=== PATIENT | male | born 1970 | race Caucasian/White ===

== ENCOUNTER 2017-12-11 05:04 | Inpatient (IN) | payer MEDICAID ==
[~2017-12-11] VITALS: Ht 167.6 cm; Wt 68.5 kg
[2017-12-11 05:58] LABS: BASOPHILS % (AUTO) 0.7 % (0.0-2.0); EOSINOPHILS % (AUTO) 1.9 % (1.0-6.0); HEMATOCRIT 44.6 % (41-53); HEMOGLOBIN 15.3 g/dL (13.5-17.5); LYMPHOCYTES # (AUTO) 2.1 K/uL (1.0-4.8); LYMPHOCYTES % (AUTO) 26.2 % (22.0-44.0); MEAN CORPUSCULAR HEMOGLOBIN 32.1 pg (26.0-34.0); MEAN CORPUSCULAR HGB CONC 34.3 G/dL (31.0-37.0); MEAN CORPUSCULAR VOLUME 94 fL (80-100); MONOCYTES # (AUTO) 0.7 K/uL (0.1-1.0); MONOCYTES % (AUTO) 8.2 % (2.0-9.0); PLATELET COUNT (AUTO) 214 K/uL (150-450); RED BLOOD CELL COUNT(AUTO) 4.76 MIL/uL (4.50-5.90); RED CELL DISTRIBUTION WIDTH 13.9 % (11.5-14.5)
[2017-12-11 06:06] LABS: ANION GAP 7 mmol/L (8-16); CALCIUM, TOTAL 8.9 mg/dL (8.8-10.5); CARBON DIOXIDE 32 mmol/L (22-29); CHLORIDE 105 mmol/L (98-107); CREATININE 0.84 mg/dL (0.60-1.30); GLOMERULAR FILTR. RATE CALC > 60 mL/min (>60); GLUCOSE,RANDOM 76 mg/dL (70-110); POTASSIUM 3.6 mmol/L (3.5-5.1); SODIUM SERUM 144 mmol/L (136-145); UREA NITROGEN, BLOOD 16 mg/dL (7-18)
[2017-12-11 06:12] LABS: ALANINE AMINOTRANSFERASE 86 U/L (12-78); ALBUMIN 3.8 g/dL (3.4-5.0); ALKALINE PHOSPHATASE 102 U/L (46-116); ASPARTATE AMINOTRANSFERASE 43 U/L (15-37); BILIRUBIN,TOTAL 0.2 mg/dL (0.1-1.0); TOTAL PROTEIN, SERUM 7.3 g/dL (6.4-8.2)
[2017-12-11] MEDS ORDERED: LORazepam 2 MG TABLET PO PRN (08:00)
[2017-12-11] MEDS ORDERED: HALOPERIDOL 5 MG TABLET PO PRN (08:00)
[2017-12-11] MEDS ORDERED: ZOLPIDEM TARTRATE 10 MG TABLET PO PRN (08:00)
[2017-12-11 13:59] VITALS: BP 105/81
[2017-12-11] MEDS ORDERED: INFLUENZA VIRUS VACCINE QVS 2017-18 (3YR+)/PF 60 MCG/0.5 ML SYRINGE IM ONE (14:00)
[2017-12-11 16:14] VITALS: BP 112/69
[2017-12-12 08:17] VITALS: BP 117/67
[2017-12-12] MEDS ORDERED: MAGNESIUM HYDROXIDE SUSPENSION 30 ML UDCUP PO PRN (08:30)
[2017-12-12] MEDS ORDERED: CloNIDine HCL 0.1 MG TABLET PO PRN (08:30)
[2017-12-12] MEDS ORDERED: ONDANSETRON HCL 4 MG TABLET PO PRN (08:30)
[2017-12-12] MEDS ORDERED: MAG HYDROX/AL HYDROX/SIMETH ES 30 ML SUSPENSION UDCUP PO PRN (08:30)
[2017-12-12] MEDS ORDERED: LOPERAMIDE HCL 2 MG CAPSULE PO PRN (08:30)
[2017-12-12] MEDS ORDERED: IBUPROFEN 600 MG TABLET PO PRN (08:30)
[2017-12-12] MEDS ORDERED: ALBUTEROL SULFATE HFA 90 MCG/PUFF 8 GM INHALER IH PRN (08:30)
[2017-12-12] MEDS ORDERED: BENZOCAINE/MENTHOL LOZENGE [8 LOZENGES/PACKET] MM PRN (08:30)
[2017-12-12] MEDS ORDERED: PETROLATUM,WHITE 71 GM JELLY TP PRN (08:30)
[2017-12-12] MEDS ORDERED: BACITRACIN 28.4 GM OINTMENT TP PRN (08:30)
[2017-12-12] MEDS ORDERED: ACETAMINOPHEN 325 MG TABLET PO PRN (08:30)
[2017-12-12] MEDS: NICOTINE 14 MG/24 HOUR PATCH TD SCH (09:41)
[2017-12-12] MEDS: QUEtiapine FUMARATE 100 MG TABLET PO SCH ×2 (09:41→17:31)
[2017-12-13] MEDS: NICOTINE 14 MG/24 HOUR PATCH TD SCH (09:01)
[2017-12-13] MEDS: QUEtiapine FUMARATE 100 MG TABLET PO SCH ×2 (09:01→17:53)
[2017-12-13 18:14] VITALS: BP 120/70
[2017-12-14] MEDS: QUEtiapine FUMARATE 100 MG TABLET PO SCH ×2 (08:09→16:53)
[2017-12-14] MEDS: NICOTINE 14 MG/24 HOUR PATCH TD SCH (08:13)
[2017-12-14 11:26] VITALS: BP 110/74
[2017-12-15 08:24] VITALS: BP 123/92
[2017-12-15] MEDS: QUEtiapine FUMARATE 100 MG TABLET PO SCH (08:51)
[2017-12-15] MEDS: NICOTINE 14 MG/24 HOUR PATCH TD SCH (08:54)
[2017-12-15] MEDS ORDERED: QUEtiapine FUMARATE 100 MG TABLET PO ONE (14:15)
[2017-12-15] MEDS ORDERED: QUET300T2 PO (14:25)
[2017-12-15] MEDS: QUEtiapine FUMARATE 300 MG TABLET PO SCH (17:24)
[2017-12-15 17:59] VITALS: BP 124/86
[2017-12-16] MEDS: NICOTINE 14 MG/24 HOUR PATCH TD SCH (09:00)
[2017-12-16] MEDS: QUEtiapine FUMARATE 300 MG TABLET PO SCH (09:30)
== END 2017-12-16 10:35 | disposition home or self-care (01) | DRG 751 ==
LOC: EMS 05:05 → AHU 10:42 → 3EC 14:58 → 3EI 12-15 22:30
PROVIDERS: ADMIT Psychiatry & Neurology Psychiatry; ATTEND Psychiatry & Neurology Psychiatry
DX: F29 Unspecified psychosis not due to a substance or known physiological condition (principal); F22 Delusional disorders; F15.10 Other stimulant abuse, uncomplicated; F41.9 Anxiety disorder, unspecified; G47.00 Insomnia, unspecified; F19.20 Other psychoactive substance dependence, uncomplicated; F17.200 Nicotine dependence, unspecified, uncomplicated; F12.90 Cannabis use, unspecified, uncomplicated; Z59.0 Homelessness; Z91.5 Personal history of self-harm
CPT/HCPCS: 99285; G0480

== ENCOUNTER 2017-12-26 13:25 | Inpatient (IN) | payer MEDICAID ==
[~2017-12-26] VITALS: Ht 167.6 cm; Wt 69.9 kg
[~2017-12-26 13:25] MED LIST: QUET300T2 PO
[2017-12-26 13:43] LABS: BASOPHILS % (AUTO) 0.8 % (0.0-2.0); EOSINOPHILS % (AUTO) 0.9 % (1.0-6.0); HEMOGLOBIN 16.7 g/dL (13.5-17.5); LYMPHOCYTES # (AUTO) 4.8 K/uL (1.0-4.8); LYMPHOCYTES % (AUTO) 41.8 % (22.0-44.0); MEAN CORPUSCULAR HEMOGLOBIN 31.7 pg (26.0-34.0); MEAN CORPUSCULAR HGB CONC 34.1 G/dL (31.0-37.0); MEAN CORPUSCULAR VOLUME 93 fL (80-100); MONOCYTES # (AUTO) 1.1 K/uL (0.1-1.0); MONOCYTES % (AUTO) 10.1 % (2.0-9.0); NEUTROPHILS # (AUTO) 5.3 K/uL (1.8-7.7); NEUTROPHILS % (AUTO) 46.4 % (40.0-70.0); PLATELET COUNT (AUTO) 316 K/uL (150-450); RED BLOOD CELL COUNT(AUTO) 5.26 MIL/uL (4.50-5.90); RED CELL DISTRIBUTION WIDTH 13.5 % (11.5-14.5)
[2017-12-26 14:11] LABS: ANION GAP 11 mmol/L (8-16); CALCIUM, TOTAL 9.1 mg/dL (8.8-10.5); CARBON DIOXIDE 27 mmol/L (22-29); CHLORIDE 102 mmol/L (98-107); CREATININE 0.89 mg/dL (0.60-1.30); GLOMERULAR FILTR. RATE CALC > 60 mL/min (>60); GLUCOSE,RANDOM 116 mg/dL (70-110); POTASSIUM 3.6 mmol/L (3.5-5.1); SODIUM SERUM 140 mmol/L (136-145); UREA NITROGEN, BLOOD 12 mg/dL (7-18)
[2017-12-26 14:15] LABS: ALANINE AMINOTRANSFERASE 115 U/L (12-78); ALBUMIN 4.2 g/dL (3.4-5.0); ALKALINE PHOSPHATASE 78 U/L (46-116); ASPARTATE AMINOTRANSFERASE 108 U/L (15-37); BILIRUBIN,TOTAL 0.8 mg/dL (0.1-1.0); TOTAL PROTEIN, SERUM 8.1 g/dL (6.4-8.2)
[2017-12-26 15:56] LABS: AMPHET/METH SCREEN,URINE POSITIVE (NEGATIVE); BARBITURATE SCREEN, URINE NEGATIVE (NEGATIVE); BENZODIAZEPINES SCREEN,URINE NEGATIVE (NEGATIVE); CANNABINOID SCREEN,URINE POSITIVE (NEGATIVE); COCAINE SCREEN,URINE NEGATIVE (NEGATIVE); METHADONE SCREEN, URINE NEGATIVE (NEGATIVE); OPIATE SCREEN,URINE NEGATIVE (NEGATIVE)
[2017-12-26 16:02] LABS: PHENCYCLIDINE SCREEN,URINE NEGATIVE (NEGATIVE)
[2017-12-26] MEDS ORDERED: QUEtiapine FUMARATE 100 MG TABLET PO ONE (16:45)
[2017-12-26] MEDS ORDERED: LORazepam 2 MG TABLET PO PRN (17:30)
[2017-12-26] MEDS ORDERED: HALOPERIDOL 5 MG TABLET PO PRN (17:30)
[2017-12-26] MEDS ORDERED: ZOLPIDEM TARTRATE 10 MG TABLET PO PRN (17:30)
[2017-12-26 18:01] LABS: APPEARANCE,URINE CLEAR (CLEAR); GLUCOSE, URINE (UA) NEGATIVE (NEGATIVE); KETONES,URINE NEGATIVE (NEGATIVE); LEUKOCYTE ESTERASE ,URINE NEGATIVE (NEGATIVE); NITRATE,URINE NEGATIVE (NEGATIVE); OCCULT BLOOD,URINE NEGATIVE (NEGATIVE); PROTEIN,URINE TRACE (NEGATIVE)
[2017-12-26 18:06] LABS: BILIRUBIN,URINE PRELIM. POSITIVE (NEGATIVE)
[2017-12-26] MEDS ORDERED: BACITRACIN 28.4 GM OINTMENT TP PRN (19:15)
[2017-12-26] MEDS ORDERED: ONDANSETRON HCL 4 MG TABLET PO PRN (19:15)
[2017-12-26] MEDS ORDERED: LOPERAMIDE HCL 2 MG CAPSULE PO PRN (19:15)
[2017-12-26] MEDS ORDERED: MAGNESIUM HYDROXIDE SUSPENSION 30 ML UDCUP PO PRN (19:15)
[2017-12-26] MEDS ORDERED: ACETAMINOPHEN 325 MG TABLET PO PRN (19:15)
[2017-12-26] MEDS ORDERED: PETROLATUM,WHITE 71 GM JELLY TP PRN (19:15)
[2017-12-26] MEDS ORDERED: ALBUTEROL SULFATE HFA 90 MCG/PUFF 8 GM INHALER IH PRN (19:15)
[2017-12-26] MEDS ORDERED: CloNIDine HCL 0.1 MG TABLET PO PRN (19:15)
[2017-12-26] MEDS ORDERED: IBUPROFEN 600 MG TABLET PO PRN (19:15)
[2017-12-26] MEDS ORDERED: MAG HYDROX/AL HYDROX/SIMETH ES 30 ML SUSPENSION UDCUP PO PRN (19:15)
[2017-12-26] MEDS ORDERED: BENZOCAINE/MENTHOL LOZENGE [8 LOZENGES/PACKET] MM PRN (19:30)
[2017-12-26 20:12] VITALS: BP 119/76
[2017-12-27 06:34] LABS: HEMOGLOBIN A1C 5.8 % (4.5-6.2)
[2017-12-27 06:49] LABS: CHOL/HDL RATIO 1.8 (4.2-7.3); THYROID STIMULATING HORMONE 2.98 uIU/mL (0.36-3.74)
[2017-12-27 09:27] VITALS: BP 118/67
[2017-12-27] MEDS: QUEtiapine FUMARATE 300 MG TABLET PO SCH ×2 (10:01→17:37)
[2017-12-27 21:36] VITALS: BP 120/74
[2017-12-28 06:50] LABS: ANION GAP 7 mmol/L (8-16); CALCIUM, TOTAL 9.1 mg/dL (8.8-10.5); CARBON DIOXIDE 30 mmol/L (22-29); CHLORIDE 104 mmol/L (98-107); CREATININE 0.67 mg/dL (0.60-1.30); GLOMERULAR FILTR. RATE CALC > 60 mL/min (>60); GLUCOSE,RANDOM 88 mg/dL (70-110); POTASSIUM 4.6 mmol/L (3.5-5.1); SODIUM SERUM 141 mmol/L (136-145); UREA NITROGEN, BLOOD 16 mg/dL (7-18)
[2017-12-28 07:03] LABS: BASOPHILS % (AUTO) 0.6 % (0.0-2.0); EOSINOPHILS % (AUTO) 1.4 % (1.0-6.0); HEMOGLOBIN 15.1 g/dL (13.5-17.5); LYMPHOCYTES # (AUTO) 3.1 K/uL (1.0-4.8); LYMPHOCYTES % (AUTO) 41.3 % (22.0-44.0); MEAN CORPUSCULAR HEMOGLOBIN 32.2 pg (26.0-34.0); MEAN CORPUSCULAR HGB CONC 34.4 G/dL (31.0-37.0); MEAN CORPUSCULAR VOLUME 94 fL (80-100); MONOCYTES # (AUTO) 0.6 K/uL (0.1-1.0); NEUTROPHILS # (AUTO) 3.6 K/uL (1.8-7.7); NEUTROPHILS % (AUTO) 48.7 % (40.0-70.0); PLATELET COUNT (AUTO) 223 K/uL (150-450); RED CELL DISTRIBUTION WIDTH 13.6 % (11.5-14.5)
[2017-12-28 08:41] VITALS: BP 101/64
[2017-12-28] MEDS: QUEtiapine FUMARATE 300 MG TABLET PO SCH ×2 (09:04→18:05)
[2017-12-28] MEDS: MUPIROCIN CALCIUM 2% 22 GM OINTMENT NASAL SCH (17:45)
[2017-12-28 21:42] VITALS: BP 100/60
[2017-12-29 08:32] VITALS: BP 120/62
[2017-12-29] MEDS: QUEtiapine FUMARATE 300 MG TABLET PO SCH ×2 (09:06→17:40)
[2017-12-29] MEDS: MUPIROCIN CALCIUM 2% 22 GM OINTMENT NASAL SCH ×2 (09:08→17:40)
[2017-12-29 17:27] VITALS: BP 115/77
[2017-12-30 08:46] VITALS: BP 129/74
[2017-12-30] MEDS: MUPIROCIN CALCIUM 2% 22 GM OINTMENT NASAL SCH ×2 (10:31→16:53)
[2017-12-30] MEDS: QUEtiapine FUMARATE 300 MG TABLET PO SCH ×2 (10:31→16:52)
[2017-12-30 16:42] VITALS: BP 128/81
[2017-12-31 08:51] VITALS: BP 107/78
[2017-12-31] MEDS: QUEtiapine FUMARATE 300 MG TABLET PO SCH ×2 (09:31→16:14)
[2017-12-31] MEDS: MUPIROCIN CALCIUM 2% 22 GM OINTMENT NASAL SCH ×2 (09:32→16:14)
[2017-12-31 16:31] VITALS: BP 101/57
[2018-01-01] MEDS: QUEtiapine FUMARATE 300 MG TABLET PO SCH (08:19)
[2018-01-01 08:33] VITALS: BP 126/75
[2018-01-01] MEDS: MUPIROCIN CALCIUM 2% 22 GM OINTMENT NASAL SCH (09:00)
[2018-01-01] MEDS ORDERED: MUPI1OIN4 NS (09:17)
== END 2018-01-01 11:00 | disposition home or self-care (01) | DRG 750 ==
LOC: EMS 13:26 → 3EI 17:33
PROVIDERS: ADMIT Psychiatry & Neurology Psychiatry; ATTEND Psychiatry & Neurology Psychiatry
DX: F25.0 Schizoaffective disorder, bipolar type (principal); R45.851 Suicidal ideations; Z91.14 Patient's other noncompliance with medication regimen; F19.20 Other psychoactive substance dependence, uncomplicated; F41.9 Anxiety disorder, unspecified; G47.00 Insomnia, unspecified; J44.9 Chronic obstructive pulmonary disease, unspecified; R73.9 Hyperglycemia, unspecified; D72.829 Elevated white blood cell count, unspecified; B19.20 Unspecified viral hepatitis C without hepatic coma; F12.10 Cannabis abuse, uncomplicated; F15.10 Other stimulant abuse, uncomplicated; F17.210 Nicotine dependence, cigarettes, uncomplicated; Z59.0 Homelessness; Z79.899 Other long term (current) drug therapy; Z71.6 Tobacco abuse counseling; Z71.51 Drug abuse counseling and surveillance of drug abuser; Z91.5 Personal history of self-harm
CPT/HCPCS: 80074; 83036; 83735; 84100; 84443; 87081; 99285; 99406; G0480